=== PATIENT | male | born 1990 | race Caucasian/White ===

== ENCOUNTER 2019-03-30 20:30 | Emergency (ER) | payer OTHER ==
--- NOTE | 2019-03-30 20:33 | UC ---
Throat Pain/Nasal Yazan HPI - HPI Summary HPI Summary: 29 yo male presents with allergies. He tells me that he has a history of severe seasonal allergies as well as allergies to most animals. Over the last week he has noticed that his allergies are "acting up". He has been having a runny nose , watery eyes, post nasal drip, and irritating cough. He has been using flonase , xyzal, and ella OTC with little relief. He was unsure why his allergies were worsening, but 2 days ago realized that his boss at work started bringing their dog into work with them for the last week. He believes this is the reason his symptoms are exacerbated. He denies fever, chills, sore throat, SOB, rash. - History of Current Complaint Stated Complaint: SINUS CONGESTION, AND COUGH Time Seen by Provider: 03/30/19 20:33 Hx Obtained From: Patient Onset/Duration: Gradual Onset Severity: Mild Pain Intensity: 3 Pain Scale Used: 0-10 Numeric Cough: Nonproductive - Allergies/Home Medications Allergies/Adverse Reactions: Allergies Allergy/AdvReac Type Severity Reaction Status Date / Time No Known Allergies Allergy Verified 03/30/19 20:40 Home Medications: Home Medications Albuterol HFA INHALER* [Ventolin HFA Inhaler*] 2 puff INH Q4H PRN 03/30/19 [ History Confirmed 03/30/19] Fexofenadine (NF) [Ella (NF)] 60 mg PO DAILY 03/30/19 [History Confirmed ] Fluticasone NASAL SPRAY 50MCG* [Flonase NASAL SPRAY 50MCG*] 2 spray BOTH NARES DAILY 03/30/19 [History Confirmed 03/30/19] LevoCETirizine TAB (NF) [Xyzal TAB (NF)] 5 mg PO DAILY 03/30/19 [History Confirmed 03/30/19] diPHENhydraMINE PO* [Benadryl PO 25 MG TAB*] 25 mg PO BEDTIME PRN 03/30/19 [ History Confirmed 03/30/19] PMH/Surg Hx/FS Hx/Imm Hx - Additional Past Medical History Additional PMH: Seasonal allergies - Surgical History Surgical History: None - Family History Known Family History: Positive: None - Social History Occupation: Employed Full-time Lives: With Family Alcohol Use: Occasionally Substance Use Type: None Smoking Status (MU): Never Smoked Tobacco Review of Systems All Other Systems Reviewed And Are Negative: Yes Constitutional: Positive: Negative Skin: Positive: Negative Eyes: Positive: Negative ENT: Positive: Nasal Discharge, Sinus Congestion, Sinus Pain/Tenderness Respiratory: Positive: Cough Cardiovascular: Positive: Negative Gastrointestinal: Positive: Negative Neurovascular: Positive: Negative Neurological: Positive: Negative Psychological: Positive: Negative Physical Exam - Summary Physical Exam Summary: GENERAL: NAD. WDWN. No pain distress. SKIN: No rashes, sores, lesions, or open wounds. HEENT: Head: AT/NC Eyes: EOM intact. Conjunctiva clear without inflammation or discharge. Ears: Hearing grossly normal. TMs intact, no bulging, erythema, or edema. Nose: Nasal mucosa pink and moist. NTTP maxillary and frontal sinus. Positive post nasal drip. Throat: Posterior oropharynx without exudates, erythema, or tonsillar enlargement. Uvula midline. NECK: Supple. Nontender. No lymphadenopathy. CHEST: CTAB. No r/r/w. No accessory muscle use. Breathing comfortably and in no distress. CV: RRR. Without m/r/g. Pulses intact. Cap refill <2seconds NEURO: Alert. PSYCH: Age appropriate behavior. Triage Information Reviewed: Yes Vital Signs: Vital Signs: Temp Pulse Resp BP Pulse Ox 99.6 F 88 16 132/75 100 03/30/19 20:37 03/30/19 20:37 03/30/19 20:37 03/30/19 20:37 03/30/19 20:37 Vital Signs Reviewed: Yes Throat Pain/Nasal Course/Dx - Course Course Of Treatment: Suspect seasonal allergies possibly exacerbated by pt's allergy to dogs and recent contact. Will rx for tessalon and prednisone. Advised pt to continue OTC medications and try to remove himself from the being near the dog at work or have a conversation with his boss. - Differential Dx/Diagnosis Provider Diagnosis: Seasonal allergies Discharge - Sign-Out/Discharge Documenting (check all that apply): Patient Departure All imaging exams completed and their final reports reviewed: No Studies - Discharge Plan Condition: Stable Disposition: HOME Prescriptions: Benzonatate CAP* [Tessalon 100 MG CAP*] 100 mg PO TID PRN #21 cap PRN Reason: Cough predniSONE TAB* [Deltasone 20 MG TAB*] 40 mg PO DAILY #11 tab Patient Education Materials: Allergies (ED) Forms: *Work Release Referrals: Jono Escobar MD [Primary Care Provider] - Additional Instructions: If you develop a fever, shortness of breath, chest pain, new or worsening symptoms - please call your PCP or go to the ED immediately. It appears your allergies are worsening due to your allergy to dogs and recent exposure. - Billing Disposition and Condition Condition: STABLE Disposition: Home - Attestation Statements Provider Attestation: Per institutional requirements, I have reviewed the chart, however, I was not consulted specifically or made aware of this patient by the midlevel provider. I did not personally evaluate, interact with , or disposition this patient.
[2019-03-30 20:40] VITALS: BP 132/75
== END 2019-03-30 21:05 | disposition home or self-care (01) ==
LOC: UCEAST 20:30
DX: J30.2 Other seasonal allergic rhinitis (principal)
CPT/HCPCS: 99202; G0463

== ENCOUNTER 2019-08-13 20:50 | Emergency (ER) | payer BC, OTHER ==
[2019-08-13 20:58] VITALS: BP 124/91
--- NOTE | 2019-08-13 21:15 | UC ---
Dizzy HPI HPI Summary: 29 yo with 3 week hx of lightheadedness which he finds difficult to describe; feels it in the back of his head. He is not spinning and he is not describing vertigo, but rather a sense of lightheadedness. No associated headache or visual change. History of allergies with trial of cetirazine several weeks ago; initially he attributed the lightheadedness to this, so he stopped use and resumed fexofenadine. Yesterday, he noticed that his pupils were unequal in size , but without associated vision changes, diplopia, photophobia or vertigo. (His girlfriend thinks that she has noted this in the past with him, but some time ago.). Today, when he felt lightheaded again, he grew concerned and came for an assessment. Lightheadedness comes and goes, no associates symptoms or links to activities. He does not drink alcohol or use marijuana or other substances. - History Of Current Complaint Chief Complaint: UCDizziness Stated Complaint: DIZZINESS Time Seen by Provider: 08/13/19 21:06 Hx Obtained From: Patient Onset/Duration: Gradual Onset Timing: Intermittent Episode Lasting - hours Severity Initially: Mild Severity Currently: Mild Pain Intensity: 0 Character: Lightheaded Aggravating Factor(s): Nothing Alleviating Factor(s): Nothing Associated Signs And Symptoms: Positive: Negative - Risk Factors Cardiac Risk Factors: Negative CVA Risk Factor: Negative - Allergies/Home Medications Allergies/Adverse Reactions: Allergies Allergy/AdvReac Type Severity Reaction Status Date / Time No Known Allergies Allergy Verified 08/13/19 20:58 Home Medications: Home Medications Omeprazole 20 mg PO DAILY 08/13/19 [History Confirmed 08/13/19] PMH/Surg Hx/FS Hx/Imm Hx Previously Healthy: Yes - Surgical History Surgical History: Yes Surgery Procedure, Year, and Place: tonsillectomy - Family History Known Family History: Positive: None - parents living and healthy Negative: Cardiac Disease, Hypertension - Social History Occupation: Employed Full-time - IT, also plays music Alcohol Use: None Substance Use Type: None Smoking Status (MU): Never Smoked Tobacco Review of Systems All Other Systems Reviewed And Are Negative: Yes Constitutional: Positive: Negative - typically sleeps 6 to 8 hours per night, overall feels rested. Was a little short on sleep the past few days. Skin: Positive: Negative Eyes: Positive: Other - unequal pupils ENT: Positive: Sinus Congestion, Other - no tinnitus. Negative: Sore Throat, Ear Ache Respiratory: Positive: Negative Cardiovascular: Positive: Negative Gastrointestinal: Positive: Negative Genitourinary: Positive: Negative Motor: Positive: Negative Neurovascular: Positive: Negative Musculoskeletal: Positive: Negative Neurological: Negative: Headache Psychological: Positive: Negative - does not feel any increase in stress Is Patient Immunocompromised?: No Physical Exam Triage Information Reviewed: Yes Appearance: Well-Appearing, No Pain Distress, Well-Nourished Vital Signs: Initial Vital Signs Temp 98.5 F 08/13/19 20:54 Pulse 82 08/13/19 20:54 Resp 16 08/13/19 20:54 BP 124/91 08/13/19 20:54 Pulse Ox 100 08/13/19 20:54 Eye Exam: Normal, Other - PONCHO, normal fundi, extraocular movements without nystagmus. Eyes: Positive: Conjunctiva Clear ENT: Positive: Hearing grossly normal, Pharynx normal, TMs normal Dental Exam: Normal Neck: Positive: Supple, Nontender, No Lymphadenopathy Respiratory: Positive: Lungs clear, Normal breath sounds Cardiovascular: Positive: RRR, No Murmur Musculoskeletal Exam: Normal Musculoskeletal: Positive: Strength Intact Neurological Exam: Other - Normal gait, no pronator drift, normal finger to nose touching without past pointing, negative Romberg, normal heel to toe walking with steady gait. Neurological: Positive: Alert, Muscle Tone Normal Psychological Exam: Normal Skin Exam: Normal Dizzy Course/Dx - Course Course Of Treatment: Report of anisocoria, now resolved. Discussed that this this is does not necessarily imply pathology. Cause of lightheadedness is not clear, possibly allergy related. There are no findings of concern which indicate need to transfer to the ER for further evaluation, but discussed [facility] at [facility] given that he does not have a PMD at this time. - Differential Dx/Diagnosis Differential Diagnosis/HQI/PQRI: Anxiety, CVA, Hypovolemia, Meniere's Disease, Transient Ischemic Attack Provider Diagnosis: Episodic lightheadedness Discharge ED - Sign-Out/Discharge Documenting (check all that apply): Patient Departure All imaging exams completed and their final reports reviewed: No Studies - Discharge Plan Condition: Good Disposition: HOME Patient Education Materials: Lightheadedness (ED) Referrals: [facility] [Outside] No Primary Care Phys,NOPCP [Primary Care Provider] - Ramin Cannon MD [Medical Doctor] - Additional Instructions: You have a referral to Dr. Cannon for an eye check due to the history of unequal pupils, although this condition can occur in a bening way. I suggest that you arrange a [facility] visit to work out the cause of lightheadedness. Ensure adequate sleep and healthy eating. - Billing Disposition and Condition Condition: GOOD Disposition: Home
== END 2019-08-13 21:46 | disposition home or self-care (01) ==
LOC: UCEAST 20:50
DX: R42 Dizziness and giddiness (principal); R09.81 Nasal congestion
CPT/HCPCS: 99211; G0463